=== PATIENT | female | born 1955 | race African-American/Black ===

== ENCOUNTER 2022-12-30 16:30 | Emergency (ER) | payer MEDICARE, MEDICAID ==
[~2022-12-30] VITALS: Ht 167.6 cm; Wt 82.0 kg
[2022-12-30 16:40] VITALS: BP 223/79
[2022-12-30 18:28] LABS: BASOPHILS % 1.1 % (0.0-2.0); EOSINOPHILS % 3.3 % (0.0-5.0); HEMATOCRIT. 43.2 % (36.0-48.0); HEMOGLOBIN. 14.2 g/dL (12.0-16.0); LYMPHOCYTES % 42.1 % (20.0-50.0); MEAN CORPUSCULAR HEMOGLOBIN 27.6 pg (28.0-32.0); MEAN CORPUSCULAR VOLUME 83.9 fL (81.0-99.0); MEAN PLATELET VOLUME 9.2 fl (7.4-10.4); MONOCYTES % 10.7 % (2.0-8.0); NEUTROPHILS % 42.8 % (40.0-76.0); PLATELET 156 x1000/uL (130-400); RED BLOOD CELL COUNT 5.15 mill/uL (4.2-5.4); RED CELL DISTRIBUTION WIDTH 13.6 % (11.6-14.6)
[2022-12-30 18:33] LABS: CHLORIDE 107 mEq/L (98-107)
== END 2022-12-30 18:57 | disposition left against medical advice (07) ==
LOC: ER 17:14
DX: H43.392 Other vitreous opacities, left eye (principal); I10 Essential (primary) hypertension; Z88.0 Allergy status to penicillin
CPT/HCPCS: 36415; 80053; 85025; 99283